=== PATIENT | male | born 1955 | race Caucasian/White ===

== ENCOUNTER 2021-07-02 22:54 | Emergency (ER) | payer OTHER ==
[2021-07-02 23:00] VITALS: BP 131/74
[2021-07-02] MEDS ORDERED: TAMSULOSIN 0.4 MG CAPSULE PO STA (23:19)
[2021-07-02] MEDS ORDERED: NAPROXEN 250 MG TABLET PO STA (23:19)
--- NOTE | 2021-07-02 23:19 | ED Physician Documentation ---
PD HPI MALE - Stated complaint Stated Complaint: MALE /POST OP, UNABLE TO URINATE - Chief complaint Chief Complaint: Abd Pain - History obtained from History obtained from: Patient - History of Present Illness Timing - onset: Today Timing - duration: Hours Timing - details: Abrupt onset, Still present Associated symptoms: Unable to urinate (he had hemorrhoidectomy this morning and noted onset of decreased urination ability through day and now unable to urinate the past few hours. Previously has had diminished stream for month or two with history of mild BPH. No meds.) PD HPI MALE CONTRIB FACTORS: No: Exposed to STD Recently seen: Surgery (outpt hemorrhoid surgery this morning.) Review of Systems Constitutional: denies: Fever, Chills GI: denies: Nausea, Vomiting PD PAST MEDICAL HISTORY - Past Medical History Cardiovascular: None Respiratory: None Neuro: None Endocrine/Autoimmune: None : Benign prostate hypertrophy (without current meds. ) - Present Medications Home Medications: Ambulatory Orders Medication Instructions Recorded Confirmed Tamsulosin [Flomax] 0.4 mg PO DAILY #5 cap 07/03/21 - Allergies Allergies/Adverse Reactions: Allergies Allergy/AdvReac Type Severity Reaction Status Date / Time No Known Drug Allergies Allergy Verified 07/02/21 23:00 PD ED PE NORMAL - Vitals Vital signs reviewed: Yes - General General: Alert and oriented X 3, No acute distress (appears some uncomfortable due to bladder fullness. ), Well developed/nourished - Abdomen Abdomen: Normal bowel sounds, Soft, Non distended, No organomegaly, Other (some tender and fullness suprapubic area. ) - Derm Derm: Normal color, Warm and dry Results - Vitals Vitals: Vital Signs - 24 hr 07/02/21 07/03/21 22:57 00:15 Temperature 36.6 C Heart Rate 79 93 Respiratory 16 16 Rate Blood Pressure 131/74 H 131/74 H O2 Saturation 96 96 Oxygen O2 Source Room air PD MEDICAL DECISION MAKING - ED course Complexity details: re-evaluated patient (feeling better with bladder empty. Only had about 450 ml in lbadder but enough. SHared discussion to leave rosas in for few days and start Flomax. Retention could relate to pain med use today, anesthesia effect or some swelling perirectal from surgery, coupled with his underlying BPH.), considered differential, d/w patient Departure - Departure Disposition: 01 Home, Self Care Clinical Impression: Postoperative urinary retention BPH (benign prostatic hyperplasia) Qualifiers: Lower urinary tract symptom presence: symptoms present Lower urinary tract symptom detail: urinary frequency Qualified Code(s): N40.1 - Benign prostatic hyperplasia with lower urinary tract symptoms Condition: Stable Record reviewed to determine appropriate education?: Yes Instructions: ED Catheter Care Rosas Prescriptions: Tamsulosin [Flomax] 0.4 mg PO DAILY #5 cap Comments: Leave the Rosas catheter in place for several days and then you can remove it and see if you are able to urinate more normally. Concurrently also use the tamsulosin daily for the next 5 days or so. Combine it with some anti-inflammatories such as naproxen 1 to 2 tablets twice daily for the next 5 days as well. Subsequently you could try nonprescription medications such as saw palmetto daily to help with prostatic hypertrophy. This seems to have some clinical benefit without the side effects necessarily. However if your still having urinary frequency and problems, then it may be you need to prescription prostate medication. If so contact your primary care provider. Return to the ER if you have urinary retention again after removing the Rosas catheter in a few days. I transmitted the script to [facility] in [place]. Discharge Date/Time: 07/03/21 00:17
[2021-07-02] MEDS ORDERED: LIDOCAINE 2% URO-JET 5 ML SYRINGE UR STA (23:29)
== END 2021-07-03 00:17 | disposition home or self-care (01) ==
LOC: ED 22:54
DX: N99.89 Other postprocedural complications and disorders of genitourinary system (principal); N40.1 Benign prostatic hyperplasia with lower urinary tract symptoms; R33.8 Other retention of urine
CPT/HCPCS: 51702; 99283; A9270